=== PATIENT | male | born 1975 | race Hispanic/Latino ===

== ENCOUNTER 2018-03-26 13:18 | Emergency (ER) | payer SELFPAY ==
--- NOTE | 2018-03-26 14:25 | RAD ---
LEFT TIBIA AND FIBULA 2 VIEWS: Date: 03/26/18 HISTORY: Fell off of ladder with pain to tibia and fibula region. FINDINGS: Postoperative changes of the distal tibia and fibula are noted with plate and screws across the tibia and two screws across the interosseous ligament. There are no signs of any acute fracture. Cortex t hrough the proximal fibula shaft is somewhat thickened focally, which is probably also related to old injury. IMPRESSION: No acute findings. POS: NAMAN
--- NOTE | 2018-03-26 14:26 | RAD ---
LEFT HAND THREE VIEWS: HISTORY: Hand pain, status post fall. FINDINGS: There are no signs of fracture or dislocation. IMPRESSION: No acute findings. POS: NAMAN
[2018-03-26] MEDS ORDERED: HYDROcodone/Acetaminophen 5/325 mg Tablet ONE (15:07)
--- NOTE | 2018-03-26 15:40 | CT ---
CT FACE NONCONTRAST: 03/26/18 HISTORY: Fall, facial injury. FINDINGS: The globes, mandible, and zygomatic arches are intact. The visualized paranasal sinuses remain well a erated. Soft tissue laceration and edema overlie the right premaxillary tissues. Chronic appearing ri ghtward deviation of the nose is evident. IMPRESSION: Soft tissue injury. No acute osseous abnormalities are demonstrated. POS: JULIETTE
--- NOTE | 2018-03-26 15:42 | RAD ---
LEFT ELBOW FOUR VIEWS: HISTORY: Fall. Left elbow injury. FINDINGS: Radial capitellar alignment is maintained. Minimal osteophytosis. No acute fracture, dislocation, o r fluid distention of the joint capsule. IMPRESSION: No acute osseous abnormalities demonstrated. POS: JULIETTE
[2018-03-26] MEDS ORDERED: Lidocaine 1% PF 5 ML VIAL ONE ×2 (15:58→16:04)
== END 2018-03-26 17:04 | disposition home or self-care (01) ==
LOC: ERS 13:18
DX: S01.411A Laceration without foreign body of right cheek and temporomandibular area, initial encounter (principal); S01.81XA Laceration without foreign body of other part of head, initial encounter; S50.02XA Contusion of left elbow, initial encounter; S60.011A Contusion of right thumb without damage to nail, initial encounter; S80.02XA Contusion of left knee, initial encounter; W18.30XA Fall on same level, unspecified, initial encounter
CPT/HCPCS: 12055; 70486; J2001

== ENCOUNTER 2018-03-31 12:00 | Emergency (ER) | payer SELFPAY | END 2018-03-31 13:11 | disposition home or self-care (01) | LOC: ERS 12:00 | DX: S01.81XD Laceration without foreign body of other part of head, subsequent encounter (principal); X58.XXXD Exposure to other specified factors, subsequent encounter ==